=== PATIENT | female | born 1960 | race African-American/Black ===

== ENCOUNTER 2021-05-24 16:34 | Emergency (ER) | payer OTHER, MEDICAID, SELFPAY ==
[~2021-05-24] VITALS: Ht 180.3 cm; Wt 140.6 kg
[~2021-05-24 16:34] MED LIST: ATEN-168 PO; BENA-6 PO; HCT25 PO
--- NOTE | 2021-05-24 16:34 | NUR ---
BROUGHT TO OUTSIDE TRIAGE TENT AND TRIAGED. AWAITING ER BED AVAILABILITY
[2021-05-24 16:35] VITALS: BP_SYST 127
--- NOTE | 2021-05-24 19:28 | NUR ---
Per [facility] deputy clerk of court, pt LWBS.
== END 2021-05-24 19:28 | disposition left against medical advice (07) ==
LOC: SED 16:34
DX: R06.02 Shortness of breath (principal); Z53.21 Procedure and treatment not carried out due to patient leaving prior to being seen by health care provider

== ENCOUNTER 2021-11-12 15:36 | Emergency (ER) | payer MEDICARE, MEDICAID ==
[~2021-11-12] VITALS: Ht 180.3 cm; Wt 131.5 kg
[2021-11-12 15:40] VITALS: BP_SYST 144
[2021-11-12] MEDS ORDERED: TRANEXAMIC ACID 1,000 MG/10 ML VIAL ONE (15:54)
--- NOTE | 2021-11-12 15:55 | NUR ---
Patient to ER bed 1 to gown for evaluation. Side rails up. Report given to ADALID HELTON.
[2021-11-12] MEDS ORDERED: TRANEXAMIC ACID 1,000 MG/10 ML VIAL TP ONE (16:00)
--- NOTE | 2021-11-12 16:00 | NUR ---
ERMD AT BEDSIDE
[2021-11-12] MEDS ORDERED: OXYMETAZOLINE HCL 0.05% NASAL SPRAY NS ONE ×2 (16:06→16:15)
[2021-11-12 17:03] LABS: CALCIUM 8.3 mg/dL (8.4-11.0); CREATININE 0.96 mg/dL (0.55-1.30); POTASSIUM 3.6 mmol/L (3.5-5.1)
[2021-11-12 17:07] LABS: INR 1.1 (0.8-1.2); PROTHROMBIN TIME 11.8 SECS (9.5-12.5)
[2021-11-12 17:09] LABS: ALBUMIN 2.8 g/dL (3.4-4.8); BASOPHILS # (AUTO) 0.1 K/uL (0.0-0.2); BASOPHILS % (AUTO) 2.7 % (0.0-2.0); EOSINOPHILS # (AUTO) 0.1 K/uL (0.0-0.4); EOSINOPHILS % (AUTO) 2.2 % (0.0-4.0); HEMATOCRIT 35.9 % (36-48); HEMOGLOBIN 11.5 g/dL (12.0-16.0); MEAN CORPUSCULAR HEMOGLOBIN 29 pg (27-31); MEAN CORPUSCULAR HGB CONC 32 % (32-36); MEAN CORPUSCULAR VOLUME 92 fL (79.0-98.0); MONOCYTES # (AUTO) 0.4 K/uL (0.0-1.0); MONOCYTES % (AUTO) 8.9 % (1.7-9.3); NEUTROPHILS # (AUTO) 2.6 K/uL (1.8-7.7); NEUTROPHILS % (AUTO) 62.2 % (40.0-70.0); PLATELET COUNT (AUTO) 243 K/uL (130-430); RED BLOOD CELL COUNT(AUTO) 3.91 MIL/uL (4.2-6.2); RED CELL DISTRIBUTION WIDTH 16.2 % (9.0-15.0); WHITE BLOOD COUNT (AUTO) 4.2 K/uL (4.8-10.8)
--- NOTE | 2021-11-12 18:26 | NUR ---
A/OX4 VSS, RESPIRATIONS EVEN NON LABORED, BLEEDING CONTROLLED
[2021-11-12 18:31] VITALS: BP_SYST 138
--- NOTE | 2021-11-12 18:48 | NUR ---
A/OX4 VSS, APPEARS TO BE IN NO ACUTE DISTRESS NOTED AT THIS TIME, BLEEDING CONTROLLED, PT VERBALIZED UNDERSTANDING OF DC INSTRUCTIONS, ALL QUESTIONS ANSWERED, AMBULATED WITH STEADY GAIT, STATED HER FAMILY WILL COME PICK HER LOBBY. Addendum: 11/12/21 at 1850 by [id number] Patient given written and verbal discharge instructions and verbalizes understanding. ER discussed with patient the results and treatment provided. Patient in stable condition. Opportunity for questions provided and answered. Medication side effect fact sheet provided.
== END 2021-11-12 18:43 | disposition home or self-care (01) ==
LOC: SED 15:36
DX: D69.9 Hemorrhagic condition, unspecified (principal); Z79.899 Other long term (current) drug therapy
CPT/HCPCS: 30901; 36415; 80053; 85025; 85610; 85730; 86886; 86900; 86901; 99284; J3490